=== PATIENT | female | born 1950 | race Caucasian/White ===

== ENCOUNTER 2025-01-02 12:55 | Emergency (ER) | payer OTHER, BC ==
[2025-01-02] MEDS ORDERED: TETRACAINE HCL 0.5% 4ML OPTH ONE (12:58)
[2025-01-02] MEDS ORDERED: FLUORESCEIN SODIUM 1 MG/WRAP ONE (12:59)
--- NOTE | 2025-01-02 13:22 | ER ---
Nurse's Notes [facility] Name: Shen Parikh Age: 74 yrs Sex: Female : 1950 Arrival Date: 01/02/2025 Time: 12:55 Bed 12 Private MD: Diagnosis: Unspecified acute conjunctivitis, right eye Presentation: 01/02 13:01 Chief complaint: Patient states: right eye became bloodshot, scratchy, tearing and me1 painful since day before yesterday. Pain 09/24. Coronavirus screen: At this time, the client does not indicate any symptoms associated with coronavirus-19. Ebola Screen: No symptoms or risks identified at this time. Initial Sepsis Screen: Does the patient meet any 2 criteria? No. Patient's initial sepsis screen is negative. Does the patient have a suspected source of infection? No. Patient's initial sepsis screen is negative. Risk Assessment: Do you want to hurt yourself or someone else? Patient reports no desire to harm self or others. Onset of symptoms was December 31, 2024. 13:01 Method Of Arrival: Ambulatory me1 13:01 Acuity: ANNIKA 4 me1 Historical: - Allergies: 13:03 No Known Allergies; me1 - PMHx: 13:03 Myocardial infarction; me1 - PSHx: 13:03 Coronary artery bypass graft; back surgery; me1 13:05 rotator cuff surgery; me1 - Immunization history:: Adult Immunizations up to date. - Infectious Disease History:: Denies. - Social history:: Smoking status: Patient reports the use of cigarette tobacco products, smokes one-half pack cigarettes per day. Screenin:09 [facility] ED Fall Risk Assessment (Adult) History of falling in the last 3 months, me1 including since admission No falls in past 3 months (0 pts) Confusion or Disorientation No (0 pts) Intoxicated or Sedated No (0 pts) Impaired Gait No (0 pts) Mobility Assist Device Used No (0 pt) Altered Elimination No (0 pt) Score/Fall Risk Level 0 - 2 = Low Risk Maintained a safe environment, Provided non-skid footwear, Hourly rounding (assess needs \T\ fall precautionary measures) done. Abuse screen: Denies threats or abuse. Nutritional screening: No deficits noted. Tuberculosis screening: No symptoms or risk factors identified. Assessment: 13:09 General: Appears uncomfortable, well groomed, well developed, well nourished, Behavior me1 is calm, cooperative, appropriate for age, Reports right eye became bloodshot, scratchy, tearing and painful since day before yesterday. Pain 7/10. Pain: Complains of pain in right eye Pain does not radiate. Pain currently is 7 out of 10 on a pain scale. Quality of pain is described as burning, scratchy Pain began 2-3 days ago. Is continuous. Neuro: Level of Consciousness is awake, alert, obeys commands, Oriented to person, place, time, situation, Appropriate for age. Cardiovascular: Patient's skin is warm and dry. Respiratory: Airway is patent Respiratory effort is even, unlabored, Respiratory pattern is regular, symmetrical. GI: No signs and/or symptoms were reported involving the gastrointestinal system. : No signs and/or symptoms were reported regarding the genitourinary system. EENT: Eyes are tearing on right eye Reports pain in right eye. Derm: Skin is intact, is healthy with good turgor, Skin is normal. Musculoskeletal: Circulation, motion, and sensation intact. Range of motion: intact in all extremities. Vital Signs: 13:01 BP 141 / 74; Pulse 77; Resp 17; Temp 98.4; Pulse Ox 99% ; Weight 53.98 kg; Height 5 ft. me1 2 in. ; Pain 7/10; 13:01 Body Mass Index 21.77 (53.98 kg, 157.48 cm) me1 13:01 Pain Scale: Adult me1 ED Course: 12:58 Patient arrived in ED. cj3 13:03 Triage completed. me1 13:05 Jalen Lamb FNP-C is PHCP. dr5 13:05 Casper Chin MD is Attending Physician. dr5 13:05 Arm band placed on Patient placed in an exam room. me1 13:09 Patient has correct armband on for positive identification. Bed in low position. Call ut1 light in reach. Side rails up X 1. Provided Education on: POC. Verbalized understanding.. 13:09 No provider procedures requiring assistance completed. Patient did [place] [facility] [place] emergency room visit. 13:46 Katie Nesbitt, RN is Primary Nurse. iw Administered Medications: 13:46 Drug: Tetracaine Ophthalmic Drops 0.5 % 1 drops Ophthalmic once Route: Ophthalmic; Site: right eye; 13:46 Drug: Fluorescein Ophthalmic Strip 1 strip Ophthalmic once Route: Ophthalmic; Site: right eye; Medication: 13:09 VIS not applicable for this client. me1 Outcome: 13:22 Discharge ordered by . dr5 13:47 Patient left the ED. Signatures: Katie Nesbitt RN RN Chio Harley RN RN me1 Jalen Lamb, DAIRY ASSOCIATE-C DAIRY ASSOCIATE-Cdr5 Maria Del Carmen Khan 3 Corrections: (The following items were deleted from the chart) 13:01 Chief complaint: Patient states: right eye became bloodshot, scratchy, tearing me1 and painful since day before yesterday. Pain 09/24. me1
--- NOTE | 2025-01-02 13:22 | EDPHYS ---
Physician Documentation [facility] Name: Shen Parikh Age: 74 yrs Sex: Female : 1950 Arrival Date: 01/02/2025 Time: 12:55 Bed 12 Private MD: ED Physician Casper Chin HPI: 01/02 18:06 This 74 yrs old Female presents to ER via Ambulatory with complaints of Eye dr5 Problem - RT. Historical: - Allergies: 13:03 No Known Allergies; me1 - PMHx: 13:03 Myocardial infarction; me1 - PSHx: 13:03 Coronary artery bypass graft; back surgery; me1 13:05 rotator cuff surgery; me1 - Immunization history:: Adult Immunizations up to date. - Infectious Disease History:: Denies. - Social history:: Smoking status: Patient reports the use of cigarette tobacco products, smokes one-half pack cigarettes per day. ROS: 19:01 Constitutional: as per hpi dr5 Exam: 19:01 Constitutional: This is a well developed, well nourished patient who is awake, alert, dr5 and in no acute distress. Head/Face: Normocephalic, atraumatic. ENT: Nares patent. No nasal discharge, no septal abnormalities noted. Tympanic membranes are normal and external auditory canals are clear. Oropharynx with no redness, swelling, or masses, exudates, or evidence of obstruction, uvula midline. Mucous membranes moist. Neck: Trachea midline, no thyromegaly or masses palpated, and no cervical lymphadenopathy. Supple, full range of motion without nuchal rigidity, or vertebral point tenderness. No Meningismus. Chest/axilla: Normal chest wall appearance and motion. Nontender with no deformity. No lesions are appreciated. Cardiovascular: Regular rate and rhythm with a normal S1 and S2. Normal PMI, no JVD. No pulse deficits. Respiratory: Lungs have equal breath sounds bilaterally, clear to auscultation. No rales, rhonchi or wheezes noted. No increased work of breathing, no retractions or nasal flaring. Abdomen/GI: Soft, non-tender, non-distended Back: No spinal tenderness. No costovertebral tenderness. Full range of motion. Skin: Warm, dry with normal turgor. Normal color with no rashes, no lesions, and no evidence of cellulitis. MS/ Extremity: Pulses equal, no cyanosis. Neurovascular intact. Full, normal range of motion. Neuro: Awake and alert, GCS 15, oriented to person, place, time, and situation. Cranial nerves II-XII grossly intact. Motor strength 5/5 in all extremities. Sensory grossly intact. Cerebellar exam normal. Normal gait. 19:01 Eyes: Periorbital structures: appear normal, Pupils: no acute changes, equal, round, and reactive to light and accomodation, Extraocular movements: intact throughout, Conjunctiva: exudate, in the right eye, injected, in the right eye, Vital Signs: 13:01 BP 141 / 74; Pulse 77; Resp 17; Temp 98.4; Pulse Ox 99% ; Weight 53.98 kg; Height 5 ft. me1 2 in. ; Pain 7/10; 13:01 Body Mass Index 21.77 (53.98 kg, 157.48 cm) me1 13:01 Pain Scale: Adult me1 Procedures: 19:01 Eye Exam: Fluorescein strip used. dr5 MDM: 13:05 Medical Screening Exam initiated dr5 19:01 Differential diagnosis: Corneal abrasion of right eye. Corneal ulcer of right eye. dr5 Foreign body in right eye. Data reviewed: vital signs, nurses notes. I considered the following discharge prescriptions or medication management in the emergency department I discussed and recommended Over The Counter medications, Medications were administered in the Emergency Department. See MAR. Care significantly affected by the following chronic conditions: [place]. Care significantly affected by the following Social Determinants of Health: Poor access to healthcare and/or lack of insurance, Poor access to transportation, Problems related to employment. Counseling: I had a detailed discussion with the patient and/or guardian regarding the historical points, exam findings, and any diagnostic results supporting the discharge/admit diagnosis, the presence of at least one elevated blood pressure reading (>120/80) during this emergency department visit, the need for outpatient follow up, for definitive care, an opthalmologist, to return to the emergency department if symptoms worsen or persist or if there are any questions or concerns that arise at home. Medication response: Tetracaine. Response to treatment: the patient's symptoms have resolved after treatment. Special discussion: I discussed with the patient/guardian in detail that at this point there is no indication for admission to the hospital. It is understood, however, that if the symptoms persist or worsen the patient needs to return immediately for re-evaluation. Based on the history and exam findings, there is no indication for further emergent testing or inpatient evaluation. I discussed with the patient/guardian the need to see the opthamologist for further evaluation of the symptoms. ED course: Tetracaine and fluorescein used on right eye and eye exam completed that found a small corneal abrasion noted on 3:00 position of right eye. Patient has injected conjunctive and will start patient on ofloxacin. All questions answered. Patient reports that much better. Strict ER precautions given.. 01/02 13:07 Order name: Fluoresene Opth strip; Complete Time: 13:46 dr5 Administered Medications: 13:46 Drug: Tetracaine Ophthalmic Drops 0.5 % 1 drops Ophthalmic once Route: Ophthalmic; iw Site: right eye; 13:46 Drug: Fluorescein Ophthalmic Strip 1 strip Ophthalmic once Route: Ophthalmic; Site: iw right eye; Disposition Summary: 01/02/25 13:22 Discharge Ordered Notes: Location: Home dr5 Condition: Stable dr5 Diagnosis - Unspecified acute conjunctivitis, right eye dr5 Followup: dr5 - With: Emergency Department - When: As needed - Reason: Worsening of condition Followup: dr5 - With: Private Physician - When: 1 - 2 days - Reason: Recheck today's complaints, Continuance of care, Re-evaluation by your physician Discharge Instructions: - Discharge Summary Sheet dr5 - Bacterial Conjunctivitis, Adult dr5 Forms: - Medication Reconciliation Form dr5 - Antibiotic Education dr5 - Patient Portal Instructions dr5 - Leadership Thank You Letter dr5 Prescriptions: - Ocuflox 0.3 % Ophthalmic drops - instill 2 drops OPHTHALMIC route every 6 hours for 7 days; 15 milliliter; dr5 Refills: 0, Product Selection Permitted Signatures: Katie Nesbitt, RN RN Chio Harley RN RN me1 Jalen Lamb, PRODUCTION BOW MAKER-C PRODUCTION BOW MAKER-Cdr5
[2025-01-02 17:24] VITALS: BP 141/74; TEMP 98.4; O2SAT 99
== END 2025-01-02 13:47 | disposition home or self-care (01) ==
LOC: ER 12:55
DX: H10.31 Unspecified acute conjunctivitis, right eye (principal)
CPT/HCPCS: 99282